=== PATIENT | male | born 1980 | race Caucasian/White ===

== ENCOUNTER 2019-10-29 10:47 | Emergency (ER) | payer OTHER ==
[2019-10-29 11:33] LABS: RAPID STREP SCREEN Negative (Negative)
--- NOTE | 2019-10-29 12:06 | ED Physician Documentation ---
PD HPI URI - Stated complaint Stated Complaint: SORE THROAT - Chief complaint Chief Complaint: Heent - History obtained from History obtained from: Patient - History of Present Illness Timing - onset: How many days ago (2-3) Timing duration: Days Timing details: Abrupt onset, Still present Associated symptoms: Fever, Sore throat, Swollen nodes. No: Dry cough, NVD Contributing factors: No: Sick contact, Travel, Immunocompromised Recently seen: Not recently seen Review of Systems Constitutional: reports: Fever, Chills Nose: denies: Rhinorrhea / runny nose Throat: reports: Sore throat Respiratory: denies: Cough PD PAST MEDICAL HISTORY - Past Medical History Cardiovascular: None Endocrine/Autoimmune: None Musculoskeletal: Other - Past Surgical History Past Surgical History: Yes Ortho: ACL reconstruction - Present Medications Home Medications: Ambulatory Orders Medication Instructions Recorded Confirmed Cephalexin [Keflex] 500 mg PO TID #20 capsule 10/29/19 Ibuprofen [Motrin] 600 mg PO TID PRN #25 tab 10/29/19 dexAMETHasone [Decadron] 4 mg PO DAILY #5 tablet 10/29/19 - Allergies Allergies/Adverse Reactions: Allergies Allergy/AdvReac Type Severity Reaction Status Date / Time No Known Drug Allergies Allergy Verified 10/29/19 11:12 - Social History Does the pt smoke?: No Smoking Status: Never smoker Does the pt drink ETOH?: No Does the pt have substance abuse?: No - Immunizations Immunizations are current?: Yes - POLST Patient has POLST: No PD ED PE NORMAL - Vitals Vital signs reviewed: Yes - General General: Alert and oriented X 3, No acute distress, Well developed/nourished - HEENT HEENT: Ears normal, Moist mucous membranes. No: Pharynx benign (redness, swelling and some tonsillar exudate. Anterior adenopathy. ) - Neck Neck: Supple, no meningeal sign - Cardiac Cardiac: RRR, No murmur - Respiratory Respiratory: Clear bilaterally - Derm Derm: Normal color, Warm and dry - Neuro Neuro: Alert and oriented X 3, No motor deficit, Normal speech Results - Vitals Vitals: Oxygen O2 Source Room air - Labs Labs: Microbiology 10/29/19 11:14 Group A Strep Throat Culture - Preliminary Throat CULTURE IN PROGRESS. RESULTS TO FOLLOW. Laboratory Tests 10/29/19 11:14 Group A Strep Rapid Negative PD MEDICAL DECISION MAKING - ED course Complexity details: considered differential (clinically suspicious for bacterial with 4/4 Centor. ), d/w patient Departure - Departure Disposition: 01 Home, Self Care Clinical Impression: Pharyngitis, acute Qualifiers: Pharyngitis/tonsillitis etiology: unspecified etiology Qualified Code(s): J02.9 - Acute pharyngitis, unspecified Condition: Stable Record reviewed to determine appropriate education?: Yes Instructions: ED Strep Pharyngitis Poss Prescriptions: Cephalexin [Keflex] 500 mg PO TID #20 capsule dexAMETHasone [Decadron] 4 mg PO DAILY #5 tablet Ibuprofen [Motrin] 600 mg PO TID PRN #25 tab PRN Reason: Pain Comments: Stay well-hydrated. Ibuprofen 3 times a day for pain and fevers. Add Tylenol if needed for pain. Your rapid strep test is negative but this clinically looks suggestive for bacterial so we will treat with some cephalexin antibiotic at least until the culture results and 1 or 2 days. This will be more definitive for bacterial or not. Meanwhile also take Decadron steroid for inflammation and this will help quite a bit on the symptoms. Forms: Activity restrictions Discharge Date/Time: 10/29/19 12:52
[2019-10-29] MEDS ORDERED: CHERRY SYRUP 10 ML UDC PO ONE (12:32)
[2019-10-29] MEDS ORDERED: IBUPROFEN 600 MG TABLET PO STA (12:32)
[2019-10-29] MEDS ORDERED: DEXAMETHASONE 10 MG/ML VIAL PO STA (12:32)
[2019-10-29] MEDS ORDERED: cephALEXin 250 MG CAPSULE PO STA (12:32)
[2019-10-29 12:52] VITALS: BP 132/91
== END 2019-10-29 12:52 | disposition home or self-care (01) ==
LOC: ED 10:47
DX: J02.9 Acute pharyngitis, unspecified (principal)
CPT/HCPCS: 87070; 87430; 99283; A9270